=== PATIENT | female | born 1945 ===

== ENCOUNTER 2017-03-31 14:01 | Inpatient (IN) | payer MEDICARE ==
[2017-03-31] MEDS ORDERED: Sodium Chloride 0.9% 1,000 ML IV STA ×2 (14:53→16:01)
[2017-03-31 15:31] LABS: BASO % 0.5 % (0.0-2.0); EOS # 0.2 K/uL (0.0-0.7); LYMPH # 3.3 K/uL (1.0-4.3); LYMPH % 43.2 % (20.0-40.0); MEAN CELL VOLUME 93.6 fl (81.0-99.0); MEAN CORPUSCULAR HEMOGLOBIN 31.3 pg (27.0-31.0); MEAN CORPUSCULAR HGB CONC 33.4 g/dL (33.0-37.0); MEAN PLATELET VOLUME 10.5 fl (7.2-11.7); MONO # 0.6 K/uL (0.0-0.8); MONO % 7.6 % (0.0-10.0); NEUT # 3.5 K/uL (1.8-7.0); NEUT % 46.7 % (50.0-75.0); NRBC % 0.3 % (0.0-0.0); RBC 3.84 Mil/uL (3.80-5.20); RED CELL DISTRIBUTION WIDTH 13.3 % (11.5-14.5); WHITE BLOOD COUNT 7.5 K/uL (4.8-10.8)
[2017-03-31 15:48] LABS: ALB/GLOB RATIO 1.4 (1.0-2.1); ALBUMIN 4.7 g/dL (3.5-5.0); ALT/SGPT 8 U/L (9-52); AST/SGOT 50 U/L (14-36); BLOOD UREA NITROGEN 14 mg/dl (7-17); GFR AFRICAN-AMERICAN > 60; GFR NON-AFRICAN AMERICAN > 60
[2017-03-31 15:59] LABS: SQUAMOUS EPITHIAL < 1 /hpf (0-5); URINE BILIRUBIN NEGATIVE (NEGATIVE); URINE BLOOD NEGATIVE (NEGATIVE); URINE CLARITY CLEAR (Clear); URINE COLOR COLORLESS (YELLOW); URINE GLUCOSE (UA) NEG (Normal); URINE LEUKOCYTE ESTERASE NEG Leu/uL (Negative); URINE NITRATE NEGATIVE (NEGATIVE); URINE PROTEIN NEGATIVE (NEGATIVE); URINE UROBILINOGEN 0.2-1.0 mg/dL (0.2-1.0)
[2017-03-31] MEDS ORDERED: Sod Polystyrene Sulf 15 gm/60 ml Oral Susp PO ONE (16:01)
[2017-03-31] MEDS ORDERED: Insulin Regular 100 units/ml IVP ONE (16:02)
[2017-03-31] MEDS ORDERED: Dextrose 50% SYRINGE Inj (50 ml) IVP ONE (16:02)
[2017-03-31] MEDS ORDERED: Calcium Gluconate 4.65 mEq/10 ml Inj IV ONE (16:03)
[2017-03-31] MEDS ORDERED: Calcium Gluconate 4.6 MEQ in Sodium Chloride 0.9% 100 ML IV ONE (16:15)
[2017-03-31 16:30] LABS: VENOUS BLOOD GAS BASE EXCESS 3.9 mmol/L (0.0-2.0); VENOUS BLOOD GAS PCO2 51 mmHg (40-60); VENOUS BLOOD GAS PO2 22 mm/Hg (30-55); VENOUS BLOOD PH 7.38 (7.32-7.43)
[2017-03-31] MEDS ORDERED: Dextrose 50% SYRINGE Inj (50 ml) ONE (16:32)
[2017-03-31] MEDS ORDERED: Insulin Regular 100 units/ml ONE (16:32)
[2017-03-31] MEDS ORDERED: Sod Polystyrene Sulf 15 gm/60 ml Oral Susp ONE (16:33)
[2017-03-31] MEDS ORDERED: Sodium Chloride 0.9% 200 ML IV STA (16:35)
--- NOTE | 2017-03-31 16:41 | ED PDOC ---
HPI: General Adult Time Seen by Provider: 03/31/17 14:52 Chief Complaint (Nursing): Weakness/Neurological Deficit Chief Complaint (Provider): dizziness and THOMSON History Per: Patient History/Exam Limitations: no limitations Additional Complaint(s): 72yo F in ED with hx of HIV, DM, high cholesterol, HTN . Pt state that she has been having a THOMSON and dizziness x 4 d and a generalized ill feeling PT also states she has been taking 2gm of metformin to 1g extended release dosage 4days. denies Chest pain, Shortness of breath, abdominal pain dyurisia vision changes. Pt denies similar symptoms in the past. pmd: yandy Phillips Past Medical History Reviewed: Historical Data, Nursing Documentation, Vital Signs Vital Signs: Last Vital Signs Temp 97.6 F 03/31/17 14:27 Pulse 62 03/31/17 14:27 Resp 16 03/31/17 14:27 BP 130/62 03/31/17 14:27 Pulse Ox 99 03/31/17 16:43 - Medical History PMH: Diabetes, HIV, HTN - Family History Family History: States: Unknown Family Hx - Home Medications Home Medications: Ambulatory Orders Medication Instructions Recorded Aspirin [Ecotrin] 81 mg PO DAILY 04/04/16 Carvedilol [Coreg] 25 mg PO BID 04/04/16 Cholecalciferol [Vitamin D 1000 IU] 1,000 units PO DAILY 04/04/16 Darunavir [Prezista] 800 mg PO DAILY 04/04/16 Emtricitabine/Tenofovir [Truvada 1 tab PO DAILY 04/04/16 200 mg-300 mg Tablet] Lisinopril/Hydrochlorothiazide 1 each PO DAILY 04/04/16 [Zestoretic 10-12.5 mg Tablet] Metformin HCl [Glucophage] 1,000 mg PO BID 04/04/16 Nitrofurantoin Macrocrystals 100 mg PO BID #14 cap 04/04/16 [Macrobid] Ritonavir [Norvir] 100 mg PO DAILY 04/04/16 SITagliptin [Januvia] 100 mg PO DAILY 04/04/16 - Allergies Allergies/Adverse Reactions: Allergies Allergy/AdvReac Type Severity Reaction Status Date / Time No Known Allergies Allergy Verified 04/04/16 08:09 Review of Systems ROS Statement: Except As Marked, All Systems Reviewed And Found Negative Constitutional: Positive for: Weakness Gastrointestinal: Positive for: Nausea Neurological: Positive for: Headache, Dizziness Physical Exam - Reviewed Nursing Documentation Reviewed: Yes Vital Signs Reviewed: Yes - Physical Exam Appears: Positive for: Non-toxic, No Acute Distress Skin: Positive for: Normal Color, Warm, DRY Eye Exam: Positive for: EOMI, Normal appearance, PERRL ENT: Positive for: Normal ENT Inspection Neck: Positive for: Normal, Painless ROM Cardiovascular/Chest: Positive for: Regular Rate, Rhythm Respiratory: Positive for: CNT, Normal Breath Sounds Gastrointestinal/Abdominal: Positive for: Normal Exam, Bowel Sounds, Soft. Negative for: Tenderness Back: Positive for: Normal Inspection Extremity: Positive for: Normal ROM Neurologic/Psych: Positive for: Alert, diesel engine mechanic apprentice II-XII (intact), Oriented, Cerebellar Tests (intact) - Laboratory Results Result Diagrams: 03/31/17 15:26 03/31/17 15:26 - ECG ECG Rhythm: Positive for: Normal QRS, Normal ST Segment, Sinus Rhythm O2 Sat by Pulse Oximetry: 99 - Progress ED Course And Treament: pt will get EKG, cbc/cmp/UA. Re-evaluation Time: 16:42 Condition: Re-examined (pt with elevated K+ and elevated lactic acid on VBG. MD Jhonatan aware of case. ), Unchanged Medical Decision Making Medical Decision Making: pt with metformin toxicitiy and lactic acidosis. pt will be admitted for further evaluation. Disposition - Clinical Impression Clinical Impression: Accidental metformin overdose, Lactic acid acidosis - Patient ED Disposition Is Patient to be Admitted: Yes - Disposition Disposition Time: 16:45 Condition: FAIR Forms: [facility] [employer] [facility] ([place]) - Pt Status Changed To: Hospital Disposition Of: Inpatient - Admit Certification Admit to Inpatient:: After my assessment, the patient will require hospitalization for at least two midnights. This is because of the severity of symptoms shown, intensity of services needed, and/or the medical risk in this patient being treated as an outpatient. Orders - Orders (Non-Med) Orders Category Date Time Status VBG Shock Panel [VENOUS BLOOD GAS SHOCK PANEL] Stat BG 03/31/17 16:27 Completed ELECTROCARDIOGRAM Stat Cardiology 03/31/17 14:53 Ordered COMP METABOLIC PANEL Stat Chem 03/31/17 15:26 Completed EKG-ED [EDNURTX] STAT ED Care 03/31/17 14:53 Active CBC (WITH DIFFERENTIAL) Stat LOPEZ 03/31/17 15:26 Completed Calcium Gluconate Med 03/31/17 16:03 Discontinued 4.6 meq IV ONCE ONE Calcium Gluconate 4.6 meq Med 03/31/17 16:15 Active Sodium Chloride 0.9% 100 ml IV ONCE Dextrose 50% [Dextrose 50% Inj] Med 03/31/17 16:32 Discontinued 50 ml .ROUTE .STK-MED ONE Dextrose 50% [Dextrose 50% Inj] Med 03/31/17 16:02 Discontinued 50 ml IVP ONCE ONE Insulin Human Regular [HumuLIN R] Med 03/31/17 16:32 Discontinued 300 units .ROUTE .STK-MED ONE Insulin Human Regular [HumuLIN R] Med 03/31/17 16:02 Discontinued 4 units IVP ONCE ONE Meclizine [Antivert] Med 03/31/17 16:32 Discontinued 25 mg PO .STK-MED ONE Meclizine [Antivert] Med 03/31/17 14:53 Discontinued 25 mg PO DAILY STA Sodium Chloride 0.9% 1,000 ml Med 03/31/17 14:53 Discontinued IV 1,000 mls/hr Sodium Chloride 0.9% 1,000 ml Med 03/31/17 16:01 Active IV 1,000 mls/hr Sodium Chloride 0.9% 200 ml Med 03/31/17 16:35 Active IV 1,000 mls/hr Sodium Polystyrene Sulfonate [kayeXALATE Oral Susp] Med 03/31/17 16:33 Discontinued 15 gm .ROUTE .STK-MED ONE Sodium Polystyrene Sulfonate [kayeXALATE Oral Susp] Med 03/31/17 16:01 Discontinued 15 gm PO ONCE ONE URINALYSIS Stat URINALYSIS 03/31/17 15:26 Received - Meds (Active ED) Sodium Chloride (Sodium Chloride 0.9%) 1,000 mls @ 1,000 mls/hr IV .Q1H STA Stop: 03/31/17 17:00 Calcium Gluconate 4.6 meq/ (Sodium Chloride) 109.8924 mls @ 109.892 mls/hr IV ONCE ONE Stop: 03/31/17 17:14 Sodium Chloride (Sodium Chloride 0.9%) 200 mls @ 1,000 mls/hr IV .Q12M STA Stop: 03/31/17 16:46 Discontinued Medications Calcium Gluconate (Calcium Gluconate) 4.6 meq IV ONCE ONE Stop: 03/31/17 16:04 Dextrose (Dextrose 50% Inj) 50 ml IVP ONCE ONE Stop: 03/31/17 16:03 Dextrose (Dextrose 50% Inj) Confirm Administered Dose 50 ml .ROUTE .STK-MED ONE Stop: 03/31/17 16:33 Sodium Chloride (Sodium Chloride 0.9%) 1,000 mls @ 1,000 mls/hr IV .Q1H STA Stop: 03/31/17 15:52 Insulin Human Regular (Humulin R) 4 units IVP ONCE ONE Stop: 03/31/17 16:03 Insulin Human Regular (Humulin R) Confirm Administered Dose 300 units .ROUTE .STK-MED ONE Stop: 03/31/17 16:33 Meclizine HCl (Antivert) 25 mg PO DAILY STA Stop: 03/31/17 14:54 Meclizine HCl (Antivert) Confirm Administered Dose 25 mg PO .STK-MED ONE Stop: 03/31/17 16:33 Sodium Polystyrene Sulfonate (Kayexalate Oral Susp) 15 gm PO ONCE ONE Stop: 03/31/17 16:02 Sodium Polystyrene Sulfonate (Kayexalate Oral Susp) Confirm Administered Dose 15 gm .ROUTE .STK-MED ONE Stop: 03/31/17 16:34
--- NOTE | 2017-03-31 19:00 | CP.PCM.HP ---
History of Present Illness - History of Present Illness History of Present Illness: 72 year old female with medical history of HIV (CD4: 1168, VL: <20 [12/2016]), NIDDM, HTN presented to ED for evaluation of fatigue, generalized weakness x 3 days. Patient initially went to PMD though was closed today. Patient states she was in usual state of health prior to this. Patient states there was an increase of metformin 4 days ago though unable to recall who increased it or the amount that it was increased to/from. Patient states has been taking metformin for approx 5 yrs, diagnosed with DM 20yrs ago, unable to recall medication she was on prior to that though denies use of insulin in the past. Patient denies chest pain, sob, abdominal pain, nausea, vomiting, fever, chills , headache, change of vision, changes in urinary/bowel habits or palpitations. Patient admits to some neck/back discomfort that started prior to weakness. No other complaints at this time. On review of eCw charts, no indication of change of medication or similar complaints. PMD: Dr. Rodriguez PMHx: HIV (CD4: 1168, VL: <20 [12/2016]), NIDDM, HTN, Vit D def Allergies: NKDA Meds: As per chart, unable to verify metformin dose ([facility] closed at time of evaluation) Surgical hx: Hysterectomy Family history: Strong family history of DM. Social history: Denies etoh, tobacco, or drug use. ED Course: Vitals stable, afebrile. PE: unremarkable EKG, cbc/cmp/UA obtained: elevated K+ (6.0) and elevated lactic acid (2.2) on VBG. EKG NSR without t-wave changes Meds: CaGluc: 4.6meq IV x 1, D50, Insulin 4U, Meclizine 25mg PO x 1, 2L of NS bolus, Kayexalate 15gm x 1 Present on Admission - Present on Admission Any Indicators Present on Admission: No Review of Systems - Review of Systems All systems: reviewed and no additional remarkable complaints except (mentioned in HPI) Past Patient History - Past Social History Smoking Status: Unknown If Ever Smoked - CARDIAC Hx Hypertension: Yes - ENDOCRINE/METABOLIC Hx Diabetes Mellitus Type 2: Yes - HEMATOLOGICAL/ONCOLOGICAL Hx Human Immunodeficiency Virus (HIV): Yes - PSYCHIATRIC Hx Substance Use: No - SURGICAL HISTORY Hx Hysterectomy: Yes Other/Comment: uterine fibroids removed Meds Allergies/Adverse Reactions: Allergies Allergy/AdvReac Type Severity Reaction Status Date / Time No Known Allergies Allergy Verified 04/04/16 08:09 Physical Exam - Constitutional Appears: Well, Non-toxic, No Acute Distress - Head Exam Head Exam: ATRAUMATIC, NORMAL INSPECTION, NORMOCEPHALIC - Eye Exam Eye Exam: EOMI, Normal appearance, PERRL - Neck Exam Neck exam: Positive for: Full Rom, Normal Inspection. Negative for: Meningismus , Tenderness - Respiratory Exam Respiratory Exam: Clear to Auscultation Bilateral, NORMAL BREATHING PATTERN. absent: Decreased Breath Sounds, Rales, Rhonchi, Wheezes - Cardiovascular Exam Cardiovascular Exam: RRR, +S1, +S2. absent: Diastolic murmur, Gallop, Systolic Murmur - GI/Abdominal Exam GI & Abdominal Exam: Normal Bowel Sounds, Soft. absent: Tenderness - Extremities Exam Extremities exam: Positive for: normal inspection. Negative for: calf tenderness, pedal edema - Neurological Exam Neurological exam: Alert, Oriented x3 - Psychiatric Exam Psychiatric exam: Normal Affect, Normal Mood - Skin Skin Exam: Dry, Intact, Normal Color, Warm Results - Vital Signs Recent Vital Signs: Last Vital Signs Temp 97.7 F 03/31/17 18:35 Pulse 52 L 03/31/17 18:35 Resp 18 03/31/17 18:35 BP 155/72 H 03/31/17 18:35 Pulse Ox 98 03/31/17 18:35 - Labs Result Diagrams: 03/31/17 15:26 03/31/17 15:26 Assessment & Plan (1) Lactic acid acidosis Status: Acute (2) Accidental metformin overdose Status: Acute (3) Hyperkalemia Status: Acute (4) Diabetes mellitus Status: Chronic (5) HTN (hypertension) Status: Chronic (6) HIV, asymptomatic Status: Chronic (7) DVT prophylaxis Status: Acute - Assessment and Plan (Free Text) Assessment: 72 year old female with medical history of HIV (CD4: 1168, VL: <20 [12/2016]), NIDDM, HTN with fatigue, generalized weakness x 3 days with possible increase of metformin. Found to have lactic acidosis. Plan: (1) Lactic acid acidosis -Lactate on VBG 2.2 with pH 7.38 -s/p NS 1L bolus x 2 -Vitals stable -Likely due to metformin accidental overdose -Admit to telemetry for further monitoring -NS @ 125cc/hr -Repeat lactate in 6 hrs -Continue to monitor (2) Accidental metformin overdose - Hold metformin at this time - Will verify dosing with [facility] in AM (3) Hyperkalemia - 6.0 - s/p CaGluc, Insulin, D50, Kayexelate - EKG/Renal function reviewed, unremarkable - Repeat in 6 hrs - Telemetry monitoring - If persists, consider medication adjustment (4) Diabetes mellitus - Random Glucose 94, serum - Continue Januvia at this time, hold metformin - Verify meds with pharmacy - Accuchecks ACHS - ISS low dose - HgbA1c 1 yr ago 6.1%, repeat at this time (5) HTN (hypertension) - Controlled, stable, asymptomatic - Continue home meds at this time - If hyperkalemia persists, d/c alysha inhibitor - Continue to monitor (6) HIV, asymptomatic - CD4: 1168, VL: <20 [12/2016] - Continue home meds at this time (7) DVT prophylaxis - SCDs for now
[2017-03-31] MEDS: Sodium Chloride 0.9% 1,000 ML IV SCH (20:13)
[2017-03-31] MEDS: Insulin Regular 100 units/ml SC SCH (21:28)
[2017-03-31 21:42] LABS: BLOOD UREA NITROGEN 14 mg/dl (7-17); CALCIUM 9.3 mg/dL (8.4-10.2); GFR AFRICAN-AMERICAN > 60; GFR NON-AFRICAN AMERICAN > 60
[2017-04-01] MEDS: Sodium Chloride 0.9% 1,000 ML IV SCH (04:26)
[2017-04-01] MEDS ORDERED: Sodium Chloride 0.9% 1,000 ML IV SCH (06:39)
[2017-04-01 07:09] LABS: HEMOGLOBIN 11.8 g/dL (12.0-16.0); MEAN CELL VOLUME 92.8 fl (81.0-99.0); MEAN CORPUSCULAR HGB CONC 34.4 g/dL (33.0-37.0); RBC 3.7 Mil/uL (3.80-5.20); RED CELL DISTRIBUTION WIDTH 13.2 % (11.5-14.5); WHITE BLOOD COUNT 6.5 K/uL (4.8-10.8)
[2017-04-01 07:22] LABS: ALB/GLOB RATIO 1.3 (1.0-2.1); ALBUMIN 3.7 g/dL (3.5-5.0); ALT/SGPT 30 U/L (9-52); AST/SGOT 18 U/L (14-36); BLOOD UREA NITROGEN 13 mg/dl (7-17); CALCIUM 8.6 mg/dL (8.4-10.2); GFR AFRICAN-AMERICAN > 60; GFR NON-AFRICAN AMERICAN > 60
[2017-04-01 07:23] LABS: INR 1.1 (0.9-1.2); PARTIAL THROMBOPLASTIN TIME 30.7 Seconds (25.6-37.1); PROTHROMBIN TIME 12.1 Seconds (9.8-13.1)
[2017-04-01] MEDS: Insulin Regular 100 units/ml SC SCH ×2 (07:30→12:50)
[2017-04-01] MEDS ORDERED: Emtricitabine-Tenofovir 200 mg-300 mg Tab PO SCH (09:00)
--- NOTE | 2017-04-01 10:06 | CARD ---
APPROVED REPORT EKG Measurement Heart [id number] <Conclusion> Sinus bradycardia Otherwise normal ECG
--- NOTE | 2017-04-01 10:18 | CARD ---
APPROVED REPORT EKG Measurement Heart [id number] TX [id number] <Conclusion> Normal sinus rhythm Normal ECG
--- NOTE | 2017-04-01 16:06 | CP.PCM.DIS ---
Provider - Provider Date of Admission: 03/31/17 16:50 Attending physician: Fiona Huff MD Primary care physician: Dr. Rodriguez Time Spent in preparation of Discharge (in minutes): 35 Diagnosis - Discharge Diagnosis (1) Hyperkalemia Status: Resolved Hospital Course - Lab Results Lab Results: Most Recent Lab Values WBC 6.5 K/uL (4.8-10.8) 04/01/17 05:15 RBC 3.70 Mil/uL (3.80-5.20) L 04/01/17 05:15 Hgb 11.8 g/dL (12.0-16.0) L 04/01/17 05:15 Hct 34.3 % (34.0-47.0) 04/01/17 05:15 MCV 92.8 fl (81.0-99.0) 04/01/17 05:15 MCH 32.0 pg (27.0-31.0) H 04/01/17 05:15 MCHC 34.4 g/dL (33.0-37.0) 04/01/17 05:15 RDW 13.2 % (11.5-14.5) 04/01/17 05:15 Plt Count 144 K/uL (130-400) 04/01/17 05:15 MPV 10.5 fl (7.2-11.7) 03/31/17 15:26 Neut % (Auto) 46.7 % (50.0-75.0) L 03/31/17 15:26 Lymph % (Auto) 43.2 % (20.0-40.0) H 03/31/17 15:26 [place] % (Auto) 7.6 % (0.0-10.0) 03/31/17 15:26 Eos % (Auto) 2.0 % (0.0-4.0) 03/31/17 15:26 Baso % (Auto) 0.5 % (0.0-2.0) 03/31/17 15:26 Neut # 3.5 K/uL (1.8-7.0) 03/31/17 15:26 Lymph # 3.3 K/uL (1.0-4.3) 03/31/17 15:26 [place] # 0.6 K/uL (0.0-0.8) 03/31/17 15:26 Eos # 0.2 K/uL (0.0-0.7) 03/31/17 15:26 Baso # 0.0 K/uL (0.0-0.2) 03/31/17 15:26 PT 12.1 Seconds (9.8-13.1) 04/01/17 05:15 INR 1.1 (0.9-1.2) 04/01/17 05:15 APTT 30.7 Seconds (25.6-37.1) 04/01/17 05:15 pO2 22 mm/Hg (30-55) L 03/31/17 16:27 VBG pH 7.38 (7.32-7.43) 03/31/17 16:27 VBG pCO2 51 mmHg (40-60) 03/31/17 16:27 VBG HCO3 26.3 mmol/L 03/31/17 16:27 VBG Total CO2 31.8 mmol/L (22-28) H 03/31/17 16:27 VBG O2 Sat (Calc) 40.2 % (40-65) 03/31/17 16:27 VBG Base Excess 3.9 mmol/L (0.0-2.0) H 03/31/17 16:27 VBG Potassium 3.9 mmol/L (3.6-5.2) 03/31/17 16:27 Sodium 138.0 mmol/L (132-148) 03/31/17 16:27 Chloride 105.0 mmol/L (98-107) 03/31/17 16:27 Glucose 77 mg/dL (65-105) 03/31/17 16:27 Lactate 2.4 mmol/L (0.7-2.1) H 03/31/17 16:27 FiO2 21.0 % 03/31/17 16:27 Sodium 142 mmol/l (132-148) 04/01/17 05:15 Potassium 3.6 MMOL/L (3.6-5.0) 04/01/17 05:15 Chloride 106 mmol/L (98-107) 04/01/17 05:15 Carbon Dioxide 29 mmol/L (22-30) 04/01/17 05:15 Anion Gap 11 (10-20) 04/01/17 05:15 BUN 13 mg/dl (7-17) 04/01/17 05:15 Creatinine 0.8 mg/dL (0.7-1.2) 04/01/17 05:15 Est GFR ( Amer) > 60 04/01/17 05:15 Est GFR (Non-Af Amer) > 60 04/01/17 05:15 POC Glucose (mg/dL) 136 mg/dL (65-110) H 03/31/17 21:21 Random Glucose 75 mg/dL (65-105) 04/01/17 05:15 Hemoglobin A1c 6.4 % (4.2-6.5) 03/31/17 21:12 Lactic Acid 3.2 MMOL/L (0.7-2.1) H 03/31/17 21:12 Calcium 8.6 mg/dL (8.4-10.2) 04/01/17 05:15 Total Bilirubin 0.3 mg/dl (0.2-1.3) 04/01/17 05:15 AST 18 U/L (14-36) 04/01/17 05:15 ALT 30 U/L (9-52) 04/01/17 05:15 Alkaline Phosphatase 57 U/L (38-126) 04/01/17 05:15 Total Protein 6.4 G/DL (6.3-8.2) 04/01/17 05:15 Albumin 3.7 g/dL (3.5-5.0) 04/01/17 05:15 Globulin 2.8 gm/dL (2.2-3.9) 04/01/17 05:15 Albumin/Globulin Ratio 1.3 (1.0-2.1) 04/01/17 05:15 Venous Blood Potassium 3.9 mmol/L (3.6-5.2) 03/31/17 16:27 Urine Color Colorless (YELLOW) 03/31/17 15:26 Urine Clarity Clear (Clear) 03/31/17 15:26 Urine pH 6.0 (5.0-8.0) 03/31/17 15:26 Ur Specific [place] < 1.005 (1.003-1.030) 03/31/17 15:26 Urine Protein Negative mg/dL (NEGATIVE) 03/31/17 15:26 Urine Glucose (UA) Neg mg/dL (Normal) 03/31/17 15:26 Urine Ketones Negative mg/dL (NEGATIVE) 03/31/17 15:26 Urine Blood Negative (NEGATIVE) 03/31/17 15:26 Urine Nitrate Negative (NEGATIVE) 03/31/17 15:26 Urine Bilirubin Negative (NEGATIVE) 03/31/17 15:26 Urine Urobilinogen 0.2-1.0 mg/dL (0.2-1.0) 03/31/17 15:26 Ur Leukocyte Esterase Neg Manuel/uL (Negative) 03/31/17 15:26 Urine RBC (Auto) < 1 /hpf (0-3) 03/31/17 15:26 Urine Microscopic WBC < 1 /hpf (0-5) 03/31/17 15:26 Ur Squamous Epith Cells < 1 /hpf (0-5) 03/31/17 15:26 - Hospital Course Hospital Course: Pt is a 72 yo F w PMH DM2, HTN, HIV compliant with medications, presented to the ED with complaints of fatigue, generalized weakness for 3 days and dizziness. Pt states that recently there was a change to her metformin medication, but she was unable to explain the change, as she continued taking one 1000mg pill in the morning and one in the evening as before. Stated that she had been on metformin in the past for several years with no issues. Patient' s pharmacy was closed at the time for verification. Pt's vitals were stable in the ED, CMP in the ED showed hyperkalemia (6.0). Pt was treated with calcium gluconate, dextrose, kayexalate and meclizine, and was hydrated with normal saline. Pt responded well to treatment, with resolution of symptoms. Repeat labs showed resolution of hyperkalemia with K values returning to within normal limits. This morning, pt stated she was no longer weak or dizzy, was able to ambulate as before without being dizzy, and stated she was ready to go home. When pt's preferred pharmacy opened today, the resident called the pharmacy and found out that prior to 03/17, the pt had been prescribed Metformin 1000mg BID, but on 03/17, pt's PMD had sent in a prescription for Metformin XR 1000 mg BID. A new prescription was sent to pt's preferred pharmacy with original type of medication. The aforementioned was explained to the pt and her son, who was at bedside, and they verbalized understanding. Pt was also advised that she would get a phone call to follow up with her PMD. - Date & Time of H&P Date of H&P: 03/31/17 Time of H&P: 19:00 Discharge Exam - Head Exam Head Exam: ATRAUMATIC, NORMAL INSPECTION, NORMOCEPHALIC - Eye Exam Eye Exam: EOMI - ENT Exam ENT Exam: Mucous Membranes Moist - Respiratory Exam Respiratory Exam: Clear to PA & Lateral, NORMAL BREATHING PATTERN - Cardiovascular Exam Cardiovascular Exam: REGULAR RHYTHM, +S1, +S2 - GI/Abdominal Exam GI & Abdominal Exam: Normal Bowel Sounds, Unremarkable - Extremities Exam Extremities exam: normal capillary refill, normal inspection - Neurological Exam Neurological exam: Alert, Oriented x3 - Psychiatric Exam Psychiatric exam: Normal Mood - Skin Skin Exam: Dry, Intact, Normal Color, Warm Discharge Plan - Discharge Medications Prescriptions: MetFORMIN [glucoPHAGE] 1,000 mg PO BID #30 tab - Follow Up Plan Condition: FAIR Disposition: HOME/ ROUTINE Instructions: Hyperkalemia (DC) Additional Instructions: Please bean picker the prescription at your pharmacy ([facility]) for Metformin 1000 mg, take one pill twice a day. Please do not take the current prescription of Metformin XR 1000 mg. Please return to emergency room if symptoms return. You will be called for a follow up appointment with Dr. Rodriguez.
[2017-04-01 16:12] VITALS: BP 157/75; PULSE 58; RESP 20; TEMP 97.8; O2SAT 98
== END 2017-04-01 16:00 | disposition home or self-care (01) | DRG 918 ==
LOC: H.ER 14:01 → H.ERHOLD 16:50 → H.TEL 18:29
PROVIDERS: ADMIT Family Medicine Geriatric Medicine; ATTEND Family Medicine Geriatric Medicine
DX: T38.3X1A Poisoning by insulin and oral hypoglycemic [antidiabetic] drugs, accidental (unintentional), initial encounter (principal); E87.2 Acidosis; E87.5 Hyperkalemia; E11.9 Type 2 diabetes mellitus without complications; I10 Essential (primary) hypertension; E55.9 Vitamin D deficiency, unspecified; Z21 Asymptomatic human immunodeficiency virus [HIV] infection status; E78.00 Pure hypercholesterolemia, unspecified; Y92.9 Unspecified place or not applicable; Z90.710 Acquired absence of both cervix and uterus

== ENCOUNTER 2017-04-05 21:25 | Emergency (ER) | payer MEDICARE ==
[2017-04-05 21:40] VITALS: BP 105/70; PULSE 72; RESP 16; TEMP 98; O2SAT 99
[2017-04-05 22:36] LABS: BASO # 0.1 K/uL (0.0-0.2); BASO % 0.6 % (0.0-2.0); EOS # 0.2 K/uL (0.0-0.7); HEMATOCRIT 36.2 % (34.0-47.0); LYMPH # 3.9 K/uL (1.0-4.3); LYMPH % 48.2 % (20.0-40.0); MEAN CELL VOLUME 93.1 fl (81.0-99.0); MEAN CORPUSCULAR HEMOGLOBIN 31.1 pg (27.0-31.0); MEAN CORPUSCULAR HGB CONC 33.4 g/dL (33.0-37.0); MEAN PLATELET VOLUME 10.4 fl (7.2-11.7); MONO # 0.6 K/uL (0.0-0.8); MONO % 7.2 % (0.0-10.0); NEUT # 3.4 K/uL (1.8-7.0); NRBC % 0.1 % (0.0-0.0); WHITE BLOOD COUNT 8.1 K/uL (4.8-10.8)
[2017-04-05 22:46] LABS: ALB/GLOB RATIO 1.4 (1.0-2.1); ALKALINE PHOSPHATASE 61 U/L (38-126); ALT/SGPT 27 U/L (9-52); AST/SGOT 19 U/L (14-36); BILIRUBIN,TOTAL 0.3 mg/dl (0.2-1.3); BLOOD UREA NITROGEN 22 mg/dl (7-17); CALCIUM 9.7 mg/dL (8.4-10.2); CARBON DIOXIDE 28 mmol/L (22-30); CHLORIDE 101 mmol/L (98-107); GFR AFRICAN-AMERICAN > 60; GLUCOSE,RANDOM 108 mg/dL (65-105); MAGNESIUM 1.9 MG/DL (1.6-2.3); PHOSPHOROUS 3.7 mg/dl (2.5-4.5); POTASSIUM 3.7 MMOL/L (3.6-5.0); SODIUM 139 mmol/l (132-148); TOTAL PROTEIN 7.5 G/DL (6.3-8.2)
--- NOTE | 2017-04-05 22:53 | ED PDOC ---
HPI: Chest Pain Time Seen by Provider: 04/05/17 21:44 Chief Complaint (Nursing): Chest Pain Chief Complaint (Provider): chest pain History Per: Patient History/Exam Limitations: no limitations Onset/Duration Of Symptoms: Days (LEFT sided with shortness of breath), Intermittent Episodes Associated Symptoms: Dyspnea. denies: Nausea, Diaphoresis Additional Complaint(s): Son reports that he believes due to her age, pt is a poor historian, but not diagnosed with outright dementia. He says that the patient will have complaints one day and then different complaints another day, but her complaints are never consistent. In most recent example, pt reports to me that she had her current chest pain even during her last admission in hospital, even though through review of charts she never reported to providers that she had chest pain. PMD [facility]. Past Medical History Reviewed: Historical Data, Nursing Documentation, Vital Signs Vital Signs: Last Vital Signs Temp 98.0 F 04/05/17 21:37 Pulse 72 04/05/17 21:37 Resp 16 04/05/17 21:37 BP 105/70 04/05/17 21:37 Pulse Ox 99 04/05/17 23:09 - Medical History PMH: Diabetes, HIV, HTN Denies: Chronic Kidney Disease - Family History Family History: States: Unknown Family Hx - Living Arrangements Living Arrangements: With Family - Social History Current smoker - smoking cessation education provided: No - Home Medications Home Medications: Ambulatory Orders Medication Instructions Recorded Aspirin [Ecotrin] 81 mg PO DAILY 04/04/16 Carvedilol [Coreg] 25 mg PO BID 04/04/16 Cholecalciferol [Vitamin D 1000 IU] 1,000 units PO DAILY 04/04/16 Darunavir [Prezista] 800 mg PO DAILY 04/04/16 Emtricitabine/Tenofovir [Truvada 1 tab PO DAILY 04/04/16 200 mg-300 mg Tablet] Lisinopril/Hydrochlorothiazide 1 each PO DAILY 04/04/16 [Zestoretic 10-12.5 mg Tablet] Ritonavir [Norvir] 100 mg PO DAILY 04/04/16 SITagliptin [Januvia] 100 mg PO DAILY 04/04/16 MetFORMIN [glucoPHAGE] 1,000 mg PO BID #30 tab 04/01/17 - Allergies Allergies/Adverse Reactions: Allergies Allergy/AdvReac Type Severity Reaction Status Date / Time No Known Allergies Allergy Verified 04/04/16 08:09 EDEN Risk Score for UA/NSTEMI - EDEN Risk Score Age > 64: YES 3 or more CAD Risk Factors: NO Known CAD (Stenosis greater than 50%): NO Aspirin use in past 7 days: NO Severe Angina: NO EKG ST changes greater than 0.5mm: NO Positive Cardiac Marker: NO EDEN Score: 1 Risk %: 5% Review of Systems ROS Statement: Except As Marked, All Systems Reviewed And Found Negative (and as per HPI) Constitutional: Positive for: Malaise. Negative for: Fever, Chills Cardiovascular: Positive for: Chest Pain Respiratory: Positive for: Shortness of Breath Neurological: Negative for: Weakness, Numbness Physical Exam - Reviewed Nursing Documentation Reviewed: Yes Vital Signs Reviewed: Yes - Physical Exam Appears: Positive for: Non-toxic, No Acute Distress Head Exam: Positive for: ATRAUMATIC, NORMOCEPHALIC Skin: Positive for: Warm, Dry Eye Exam: Positive for: EOMI, PERRL ENT: Negative for: Pharyngeal Erythema, Tonsillar Exudate Neck: Positive for: Painless ROM, Supple Cardiovascular/Chest: Positive for: Regular Rate, Rhythm. Negative for: Murmur , Irregularly Irregular Respiratory: Positive for: Normal Breath Sounds. Negative for: Accessory Muscle Use, Wheezing, Respiratory Distress Gastrointestinal/Abdominal: Positive for: Soft. Negative for: Tenderness Back: Positive for: Normal Inspection. Negative for: Vertebral Tenderness Extremity: Positive for: Normal ROM, Pedal Edema (trace). Negative for: Calf Tenderness Lymphatic: Negative for: Adenopathy Neurologic/Psych: Positive for: Alert, Mood/Affect (flat). Negative for: Motor/ Sensory Deficits - Laboratory Results Result Diagrams: 04/05/17 22:32 04/05/17 22:32 - ECG O2 Sat by Pulse Oximetry: 99 Medical Decision Making Medical Decision Making: Pt with reported chest pain and shortness of breath but does not appear to be in any distress whatsoever and demonstrates no concern about her symptoms. She is eager to go home and family also eager to bring her home. Offered hospitalization for serial enzymes and observation for possibility of ACS but at this time the patient declines. Advised both her and her family that they can return at anytime. Will f/u with [facility] tomorrow. Disposition - Clinical Impression Clinical Impression: Chest pain - Disposition Referrals: Chapo Wisdom MD [Family Provider] - 04/06/17 (CALL TOMORROW FOR FOLLOW UP APPOINTMENT THIS WEEK) Disposition: Routine/Home Disposition Time: 23:00 Condition: GOOD Additional Instructions: Return to ER for worsening symptoms, or if you would like further evaluation for chest pain. Cameron smith. Instructions: Chest Pain (ED) Forms: [facility] (Yoruba) Print Language: CHINESE
[2017-04-05 23:10] LABS: PARTIAL THROMBOPLASTIN TIME 30.8 Seconds (25.6-37.1)
[2017-04-05 23:16] LABS: THYROID STIMULATING HORMONE 2.39 mIU/ML (0.46-4.68)
--- NOTE | 2017-04-06 08:39 | RAD ---
HISTORY: cp COMPARISON: No prior. FINDINGS: LUNGS: No active pulmonary disease. PLEURA: No significant pleural effusion identified, no pneumothorax apparent. CARDIOVASCULAR: No radiographic findings to suggest acute or significant cardiovascular disease. OSSEOUS STRUCTURES: No significant abnormalities. VISUALIZED UPPER ABDOMEN: Normal. OTHER FINDINGS: None. IMPRESSION: No active disease. No preliminary report provided by emergency department personnel.
--- NOTE | 2017-04-06 17:44 | CARD ---
APPROVED REPORT EKG Measurement Heart [id number] <Conclusion> Normal sinus rhythm Normal ECG
== END 2017-04-05 23:54 | disposition home or self-care (01) ==
LOC: H.ER 21:25
DX: R07.89 Other chest pain (principal); E11.9 Type 2 diabetes mellitus without complications; Z79.84 Long term (current) use of oral hypoglycemic drugs; I10 Essential (primary) hypertension; Z79.82 Long term (current) use of aspirin